=== PATIENT | female | born 1960 | race Caucasian/White ===

== ENCOUNTER 2016-11-01 17:19 | Emergency (ER) | payer OTHER ==
[2016-11-01 17:35] VITALS: BP 151/81; PULSE 101; O2SAT 98
--- NOTE | 2016-11-01 17:44 | ERPHSYRPT ---
- History of Present Illness Time Seen by Provider: 11/01/16 17:41 Source: patient Exam Limitations: no limitations Patient Subjective Stated Complaint: lt knee pain Triage Nursing Assessment: fell at 0800 this morning and landed on lt knee. significant bruising noted to lt knee and swelling noted. pedal pulse noted. can bear wt but does have pain Physician History: left knee pain due to fall today AM. fell at 0800 this morning and landed on left knee. significant bruising noted to lt knee and swelling noted. pedal pulse noted. can bear wt but does have pain Occurred: this morning Quality: constant Severity of Pain-Max: moderate Severity of Pain-Current: moderate Lower Extremities Pain: knee: left Modifying Factors: Improves With: nothing Associated Symptoms: none, No unable to bear weight, No snapping sensation, No popping sensation Allergies/Adverse Reactions: acetaminophen [From Tylenol] Adverse Reaction (Verified 11/01/16 17:34) ibuprofen Adverse Reaction (Verified 11/01/16 17:34) Home Medications: Aspirin [Aspirin EC] 81 mg PO DAILY 03/23/15 [History] Cholecalciferol (Vitamin D3) [Vitamin D] 5,000 unit PO DAILY 03/23/15 [ History] Glipizide 5 mg [Glucotrol 5 MG] 10 mg PO BID 03/23/15 [History] Hydrochlorothiazide 12.5 mg PO DAILY 03/23/15 [History] Lisinopril 10 mg PO DAILY 03/23/15 [History] Meloxicam 7.5 mg [Mobic 7.5 MG] 7.5 mg PO DAILY 03/23/15 [History] Metformin HCl 1000 mg [Glucophage 1000 MG] 1,000 mg PO BID 03/23/15 [History] Simvastatin 20 mg PO HS 03/23/15 [History] Sitagliptin Phosphate [Januvia] 100 mg PO DAILY 03/23/15 [History] Bupropion HCl [Bupropion Xl] 300 mg PO DAILY 11/01/16 [History] Fluticasone Propionate [Flonase NASAL] 16 gm NS DAILY 11/01/16 [History] Hx Tetanus, Diphtheria Vaccination/Date Given: Yes Hx Influenza Vaccination/Date Given: Yes Hx Pneumococcal Vaccination/Date Given: No Immunizations Up to Date: Yes - Review of Systems Constitutional: No Symptoms Eyes: No Symptoms Ears, Nose, & Throat: No Symptoms Respiratory: No Symptoms Cardiac: No Symptoms Abdominal/Gastrointestinal: No Symptoms Musculoskeletal: Fall, Injury, Joint Redness (left knee), Joint Pain, Joint Swelling - Past Medical History Pertinent Past Medical History: Yes Cardiac History: High Cholesterol, Hypertension Endocrine Medical History: Diabetes Type II Musculoskeletal History: Arthritis, Other History: Other - Past Surgical History Past Surgical History: Yes Gastrointestinal: Cholecystectomy Female Surgical History: Section Other Surgical History: tonsillectomy - Social History Smoking Status: Never smoker Exposure to second hand smoke: Yes Drug Use: none Patient Lives Alone: Yes - Nursing Vital Signs Nursing Vital Signs: Initial Vital Signs Temperature 98.4 F Temperature Source Oral Pulse Rate 101 Respiratory Rate 18 Blood Pressure [] 151/81 Pain Intensity 7 - Physical Exam General Appearance: no apparent distress Legs Exam: left leg: soft tissue tenderness, swelling Knees Exam: left knee: pain, soft tissue tenderness, swelling SpO2: 98 Oxygen Delivery: Room Air - Course Nursing assessment & vital signs reviewed: Yes - Radiology Exams Knee X-ray Interpretation: Reviewed by me, Negative, No Fracture Ordered Tests: Active Orders 24 hr Category Date Time Status FEMUR Stat Exams 11/01/16 17:39 Ordered KNEE (3 VIEWS) Stat Exams 11/01/16 17:39 Ordered - Progress Progress: improved, pain not gone completely Counseled pt/family regarding: diagnosis, need for follow-up, rad results - Departure Time of Disposition: 18:26 Departure Disposition: Home Clinical Impression: Contusion of left knee and lower leg Qualifiers: Encounter type: initial encounter Qualified Code(s): S80.02XA - Contusion of left knee, initial encounter; S80.12XA - Contusion of left lower leg, initial encounter Condition: Stable Critical Care Time: No Referrals: DAE GAN NP [Primary Care Provider] - Followup in 3 days w/ PCP Instructions: Contusion, Knee Pain, Use a Knee Immobilizer, Knee Effusion Additional Instructions: SPRAINS/STRAINS/CONTUSIONS 1. Rest the affected area as much as possible for the next few days. 2. Apply ice to the affected area for 20-30 minutes at a time, several times a day. 3. If you receive an elastic wrap, wear it only while awake for comfort and support. Re-wrap the elastic wrap if it feels too tight or too loose. 4. If swelling is present, elevate the affected part above the level of the heart for at least 2 to 3 days. 5. Use splints, slings, or crutches as instructed. 6. Watch for severe swelling, coldness, numbness, and discoloration of the fingers and toes. See your family physician or return to the emergency department if any of these are noted.
--- NOTE | 2016-11-01 21:03 | XRAY ---
Indication: Pain following fall. Comparison: None 2 views of the left femur demonstrates knee degenerative changes reported separately. No other bony, articular, or soft tissue abnormalities.
--- NOTE | 2016-11-01 21:05 | XRAY ---
Indication: Pain following fall. Comparison: None 3 views of the left knee demonstrates mild medial degenerative joint space narrowing/spurring. No other bony, articular, or soft tissue abnormalities.
== END 2016-11-01 18:50 | disposition home or self-care (01) ==
LOC: ED 17:19
DX: S80.02XA Contusion of left knee, initial encounter (principal); S80.12XA Contusion of left lower leg, initial encounter; W19.XXXA Unspecified fall, initial encounter; Z79.899 Other long term (current) drug therapy; E11.9 Type 2 diabetes mellitus without complications; E78.00 Pure hypercholesterolemia, unspecified; I10 Essential (primary) hypertension
CPT/HCPCS: 73552; 73562; 99283